=== PATIENT | male | born 1980 | race African-American/Black ===

== ENCOUNTER 2017-01-24 14:20 | Emergency (ER) | payer OTHER ==
[2017-01-24] MEDS ORDERED: LIDOCAINE 2% UROJECT 10 ML ONE (15:11)
[2017-01-24] MEDS ORDERED: DIAZEPAM 5 MG TABLET ONE (16:15)
[2017-01-24 17:33] LABS: SPECIFIC GRAVITY 1.025 (1.001-1.030); URINE BILIRUBIN NEGATIVE (NEGATIVE); URINE BLOOD NEGATIVE (NEGATIVE); URINE GLUCOSE (UA) NEGATIVE (NEGATIVE); URINE LEUKOCYTE ESTERASE NEGATIVE (NEGATIVE); URINE NITRITE NEGATIVE (NEGATIVE); URINE PROTEIN NEGATIVE (NEGATIVE); URINE UROBILINOGEN NORMAL (0-1 mg/dl)
[2017-01-24 17:39] LABS: URINE APPEARANCE CLEAR; URINE COLOR DARK YELLOW
== END 2017-01-24 17:36 | disposition home or self-care (01) ==
LOC: ED 14:20
DX: K62.89 Other specified diseases of anus and rectum (principal); K58.9 Irritable bowel syndrome, unspecified; F17.210 Nicotine dependence, cigarettes, uncomplicated; Z93.3 Colostomy status